=== PATIENT | male | born 1950 | race Caucasian/White ===

== ENCOUNTER 2025-06-02 11:50 | Inpatient (IN) | payer MEDICARE, MEDICAID ==
[~2025-06-02] VITALS: Ht 149.9 cm; Wt 67.6 kg
[2025-06-02] MEDS ORDERED: ATOR20TA65 PO (16:32)
[2025-06-02] MEDS ORDERED: ASPI-1450 PO (16:32)
[2025-06-02] MEDS ORDERED: CLOP75TA83 PO (17:27)
[2025-06-02] MEDS ORDERED: PIPE3.3772 IV (17:27)
[2025-06-02] MEDS ORDERED: EMPA25TA3 PO (17:27)
[2025-06-02 18:35] VITALS: BP 132/67; PULSE 64; RESP 18; TEMP 98.8; O2SAT 97
[2025-06-02 20:00] VITALS: BP 120/64; PULSE 64; RESP 18; TEMP 98.4; O2SAT 97
[2025-06-02] MEDS ORDERED: ETHYL ALCOHOL 62% ANTISEPTIC NASAL SANITIZER 0.6 ML AMPUL NASAL SCH (21:00)
[2025-06-02] MEDS: ATORVASTATIN CALCIUM 20 MG TABLET PO SCH (21:28)
[2025-06-02] MEDS: ETHYL ALCOHOL 62% ANTISEPTIC NASAL SANITIZER 0.6 ML AMPUL NASAL SCH (21:28)
[2025-06-02] MEDS: HEPARIN SODIUM,PORCINE 5,000 UNITS/ML VIAL SQ SCH (23:02)
[2025-06-02] MEDS: PIPERACILLIN/TAZO 3.375 GM/D5W 50 ML IV SCH (23:03)
[2025-06-03] MEDS ORDERED: DEXTROSE 50%-WATER 25 GM/50 ML SYRINGE IVP PRN (02:00)
[2025-06-03 06:45] LABS: GLUCOMETER DEV NAME(LOC) 2WR.1D; GLUCOSE,POINT OF CARE 138 MG/DL (70-110)
[2025-06-03 06:57] LABS: PLATELET COUNT (AUTO) 233 K/uL (150-450); RED BLOOD CELL COUNT(AUTO) 4.40 MIL/uL (4.50-5.90); RED CELL DISTRIBUTION WIDTH 13.1 % (11.5-14.5); WHITE BLOOD COUNT (AUTO) 9.2 K/uL (4.5-11.0)
[2025-06-03 07:11] LABS: ASPARTATE AMINOTRANSFERASE 25 U/L (15-37); CALCIUM, TOTAL 9.0 mg/dL (8.8-10.5); CREATININE 0.90 mg/dL (0.60-1.30); GLOMERULAR FILTR. RATE CALC > 60 mL/min (>60); GLUCOSE,RANDOM 150 mg/dL (70-110); SODIUM SERUM 143 mmol/L (136-145); TOTAL PROTEIN, SERUM 7.2 g/dL (6.4-8.2); UREA NITROGEN, BLOOD 16 mg/dL (7-18)
[2025-06-03 08:00] VITALS: BP 120/60; PULSE 59; RESP 18; TEMP 98.7; O2SAT 100
[2025-06-03] MEDS: ASPIRIN 81 MG CHEWABLE TABLET PO SCH (08:42)
[2025-06-03] MEDS: CLOPIDOGREL BISULFATE 75 MG TABLET PO SCH (08:42)
[2025-06-03] MEDS: EMPAGLIFLOZIN 25 MG TABLET PO SCH (08:43)
[2025-06-03] MEDS: 0.9% SODIUM CHLORIDE 10 ML SYRINGE IVP SCH (08:43)
[2025-06-03 12:51] LABS: GLUCOMETER DEV NAME(LOC) 2WR.1D; GLUCOSE,POINT OF CARE 177 MG/DL (70-110)
[2025-06-03] MEDS: INSULIN LISPRO 100 UNITS/ML SQ PRN (12:55)
[2025-06-03 14:46] LABS: APPEARANCE,URINE CLEAR (CLEAR); GLUCOSE, URINE (UA) >=1000 mg/dL (NEGATIVE); LEUKOCYTE ESTERASE ,URINE NEGATIVE (NEGATIVE); NITRATE,URINE NEGATIVE (NEGATIVE); OCCULT BLOOD,URINE NEGATIVE (NEGATIVE); SPECIFIC GRAVITIY, URINE 1.031 (1.003-1.030)
[2025-06-03 17:59] LABS: SQUAMOUS EPITHELIAL CELL,UR Rare /LPF (None Seen)
[2025-06-03 18:05] LABS: GLUCOMETER DEV NAME(LOC) 2WR.1D; GLUCOSE,POINT OF CARE 402 MG/DL (70-110)
[2025-06-03 18:41] LABS: GLUCOMETER DEV NAME(LOC) 2WR.2C; GLUCOSE,POINT OF CARE 169 MG/DL (70-110)
[2025-06-03 20:02] VITALS: BP 119/72; PULSE 68; RESP 18; TEMP 98.6; O2SAT 95
[2025-06-03] MEDS: AMOX TR/POT CLAV 500 MG/125 MG TABLET PO SCH (20:07)
[2025-06-03 20:36] LABS: GLUCOMETER DEV NAME(LOC) 2WR.1D; GLUCOSE,POINT OF CARE 227 MG/DL (70-110)
[2025-06-04 02:00] VITALS: O2SAT 95
[2025-06-04 07:00] LABS: GLUCOMETER DEV NAME(LOC) 2WR.1D; GLUCOSE,POINT OF CARE 123 MG/DL (70-110)
[2025-06-04 08:00] VITALS: BP 105/79; PULSE 65; RESP 18; TEMP 98.1; O2SAT 100
[2025-06-04 11:51] LABS: GLUCOMETER DEV NAME(LOC) 2WR.2C; GLUCOSE,POINT OF CARE 238 MG/DL (70-110)
[2025-06-04 16:45] LABS: GLUCOMETER DEV NAME(LOC) 2WR.2C; GLUCOSE,POINT OF CARE 111 MG/DL (70-110)
[2025-06-04 20:00] VITALS: BP 134/57; PULSE 62; RESP 19; TEMP 98.1; O2SAT 97
[2025-06-04 20:55] LABS: GLUCOMETER DEV NAME(LOC) 2WR.2C; GLUCOSE,POINT OF CARE 219 MG/DL (70-110)
[2025-06-04] MEDS: TAMSULOSIN HCL 0.4 MG CAPSULE PO SCH (21:14)
[2025-06-05 07:35] LABS: GLUCOMETER DEV NAME(LOC) 2WR.2C; GLUCOSE,POINT OF CARE 119 MG/DL (70-110)
[2025-06-05 08:00] VITALS: BP 111/57; PULSE 65; RESP 18; TEMP 97.7; O2SAT 100
[2025-06-05 11:51] LABS: GLUCOMETER DEV NAME(LOC) 2WR.1D; GLUCOSE,POINT OF CARE 208 MG/DL (70-110)
[2025-06-05 17:25] LABS: GLUCOMETER DEV NAME(LOC) 2WR.2C; GLUCOSE,POINT OF CARE 150 MG/DL (70-110)
[2025-06-05 20:04] VITALS: BP 121/53; PULSE 69; RESP 18; TEMP 98.2; O2SAT 98
[2025-06-05 20:55] LABS: GLUCOMETER DEV NAME(LOC) 2WR.1D; GLUCOSE,POINT OF CARE 168 MG/DL (70-110)
[2025-06-06 07:00] LABS: GLUCOMETER DEV NAME(LOC) 2WR.2C; GLUCOSE,POINT OF CARE 108 MG/DL (70-110)
[2025-06-06 08:11] VITALS: BP 120/58; PULSE 69; RESP 18; TEMP 97.9; O2SAT 98
[2025-06-06] MEDS: ACETAMINOPHEN 325 MG TABLET PO PRN (08:11)
[2025-06-06 12:46] LABS: GLUCOMETER DEV NAME(LOC) 2WR.2C; GLUCOSE,POINT OF CARE 156 MG/DL (70-110)
[2025-06-06 16:51] LABS: GLUCOMETER DEV NAME(LOC) 2WR.2C; GLUCOSE,POINT OF CARE 128 MG/DL (70-110)
[2025-06-06 20:02] VITALS: BP 122/56; PULSE 70; RESP 18; TEMP 98.4; O2SAT 96
[2025-06-06 22:00] LABS: GLUCOMETER DEV NAME(LOC) 2WR.2C; GLUCOSE,POINT OF CARE 131 MG/DL (70-110)
[2025-06-06 22:44] VITALS: O2SAT 96
[2025-06-07 07:21] LABS: GLUCOMETER DEV NAME(LOC) 2WR.1D; GLUCOSE,POINT OF CARE 101 MG/DL (70-110)
[2025-06-07 08:00] VITALS: BP 117/69; PULSE 70; RESP 18; TEMP 98.1; O2SAT 98
[2025-06-07 10:16] LABS: GLUCOMETER DEV NAME(LOC) 2WR.1D; GLUCOSE,POINT OF CARE 200 MG/DL (70-110)
[2025-06-07 12:00] LABS: GLUCOMETER DEV NAME(LOC) 2WR.1D; GLUCOSE,POINT OF CARE 122 MG/DL (70-110)
[2025-06-07 16:50] LABS: GLUCOMETER DEV NAME(LOC) 2WR.1D; GLUCOSE,POINT OF CARE 107 MG/DL (70-110)
[2025-06-07 19:30] VITALS: BP 129/61; PULSE 67; RESP 18; TEMP 98.4; O2SAT 98
[2025-06-07 23:26] LABS: GLUCOMETER DEV NAME(LOC) 2WR.1D; GLUCOSE,POINT OF CARE 123 MG/DL (70-110)
[2025-06-08 08:00] VITALS: BP 122/64; PULSE 75; RESP 18; TEMP 97.9; O2SAT 98
[2025-06-08 20:00] VITALS: BP 130/69; PULSE 69; RESP 18; TEMP 97.5; O2SAT 97
[2025-06-09 07:30] VITALS: BP 96/68; PULSE 77; RESP 19; TEMP 98.1; O2SAT 100
[2025-06-09 07:31] LABS: CALCIUM, TOTAL 8.8 mg/dL (8.8-10.5); CREATININE 0.68 mg/dL (0.60-1.30); GLOMERULAR FILTR. RATE CALC > 60 mL/min (>60); GLUCOSE,RANDOM 103 mg/dL (70-110); SODIUM SERUM 141 mmol/L (136-145); UREA NITROGEN, BLOOD 14 mg/dL (7-18)
[2025-06-09 16:26] VITALS: BP 112/57; PULSE 64
[2025-06-09 20:00] VITALS: BP 126/67; PULSE 63; RESP 17; TEMP 97.8; O2SAT 98
[2025-06-09] MEDS: DOCUSATE SODIUM 100 MG CAPSULE PO PRN (21:25)
[2025-06-10 00:16] LABS: GLUCOMETER DEV NAME(LOC) 2WR.2C; GLUCOSE,POINT OF CARE 168 MG/DL (70-110)
[2025-06-10 06:56] LABS: GLUCOMETER DEV NAME(LOC) 2WR.2C; GLUCOSE,POINT OF CARE 106 MG/DL (70-110)
[2025-06-10 08:00] VITALS: BP 96/52; PULSE 61; RESP 18; TEMP 97.6; O2SAT 97
[2025-06-10 20:02] VITALS: BP 138/71; PULSE 67; RESP 18; TEMP 98.6; O2SAT 100
[2025-06-11 08:10] VITALS: BP 101/57; PULSE 56; RESP 18; TEMP 97.6; O2SAT 100
[2025-06-11 20:01] VITALS: BP 108/49; PULSE 69; RESP 18; TEMP 98.6; O2SAT 97
[2025-06-12 07:50] LABS: GLUCOMETER DEV NAME(LOC) 2WR.2C; GLUCOSE,POINT OF CARE 123 MG/DL (70-110)
[2025-06-12 08:00] VITALS: BP 120/80; PULSE 63; RESP 18; TEMP 98; O2SAT 98
[2025-06-12 20:45] VITALS: BP 123/70; PULSE 64; RESP 18; TEMP 98.8; O2SAT 99
[2025-06-12] MEDS: MELATONIN 3 MG TABLET PO PRN (20:48)
[2025-06-13 06:56] LABS: GLUCOMETER DEV NAME(LOC) 2WR.1D; GLUCOSE,POINT OF CARE 113 MG/DL (70-110)
[2025-06-13 08:00] VITALS: BP 127/62; PULSE 56; RESP 18; TEMP 97.9; O2SAT 99
[2025-06-13 10:31] LABS: GLUCOMETER DEV NAME(LOC) 2WR.1D; GLUCOSE,POINT OF CARE 97 MG/DL (70-110)
[2025-06-13 10:46] LABS: GLUCOMETER DEV NAME(LOC) 2WR.1D; GLUCOSE,POINT OF CARE 113 MG/DL (70-110)
[2025-06-13] MEDS: HEPARIN SODIUM,PORCINE 5,000 UNITS/ML VIAL SQ SCH (10:51)
[2025-06-13] MEDS ORDERED: TAMS0.4C94 PO (14:01)
[2025-06-13] MEDS ORDERED: METF-1211 PO (14:01)
[2025-06-13] MEDS ORDERED: ATOR20TA65 PO (14:03)
[2025-06-13] MEDS ORDERED: ASPI-1450 PO (14:03)
[2025-06-13] MEDS ORDERED: CLOP75TA83 PO (14:03)
[2025-06-13] MEDS ORDERED: EMPA25TA3 PO (14:03)
[2025-06-13] MEDS: PNEUMOCOCCAL VACCINE POLYVALENT 0.5 ML SYRINGE [PPSV23] IM. ONE (16:42)
[2025-06-13 20:05] VITALS: BP 124/67; PULSE 68; RESP 18; TEMP 98; O2SAT 99
[2025-06-14 07:01] LABS: GLUCOMETER DEV NAME(LOC) 2WR.1D; GLUCOSE,POINT OF CARE 116 MG/DL (70-110)
[2025-06-14 08:00] VITALS: BP 127/61; PULSE 66; RESP 19; TEMP 98.1; O2SAT 97
[2025-06-14 11:15] LABS: GLUCOMETER DEV NAME(LOC) 2WR.1D; GLUCOSE,POINT OF CARE 117 MG/DL (70-110)
== END 2025-06-14 13:00 | disposition home health service (06) | DRG 56 ==
LOC: 2WR 18:37
PROVIDERS: ADMIT Physical Medicine & Rehabilitation; ATTEND Physical Medicine & Rehabilitation
DX: I69.354 Hemiplegia and hemiparesis following cerebral infarction affecting left non-dominant side (principal); J18.9 Pneumonia, unspecified organism; R47.1 Dysarthria and anarthria; R41.89 Other symptoms and signs involving cognitive functions and awareness; Z74.09 Other reduced mobility; I10 Essential (primary) hypertension; E11.9 Type 2 diabetes mellitus without complications; E78.5 Hyperlipidemia, unspecified; K08.89 Other specified disorders of teeth and supporting structures; R13.12 Dysphagia, oropharyngeal phase; Z91.148 Patient's other noncompliance with medication regimen for other reason
CPT/HCPCS: 74230; 80048; 80053; 81001; 82962; 85025; 87081; 92507; 92523; 92526; 92611; 97110; 97112; 97116; 97150; 97163; 97167; 97530; 97535; 99366; J1644; J2543

== ENCOUNTER 2025-07-19 10:49 | Emergency (ER) | payer MEDICARE, MEDICAID ==
[~2025-07-19] VITALS: Ht 144.8 cm; Wt 68.2 kg
[~2025-07-19 10:49] MED LIST: ASPI-1450 PO; ATOR20TA65 PO; CLOP75TA83 PO; EMPA25TA3 PO; METF-1211 PO; TAMS0.4C94 PO
[2025-07-19 11:02] VITALS: TEMP 98.2
[2025-07-19] MEDS ORDERED: EMPA25TA3 PO (11:09)
[2025-07-19] MEDS ORDERED: ATOR40TA28 PO (11:09)
[2025-07-19] MEDS ORDERED: LISI-892 PO (11:09)
[2025-07-19 11:25] LABS: GLUCOMETER DEV NAME(LOC) ER.7; GLUCOSE,POINT OF CARE 154 MG/DL (70-110)
[2025-07-19] MEDS ORDERED: DOXY-354 PO (14:09)
[2025-07-19] MEDS ORDERED: CEPH-558 PO (14:09)
[2025-07-19 14:19] VITALS: BP 116/70; PULSE 75; RESP 18; O2SAT 99
== END 2025-07-19 14:28 | disposition home or self-care (01) ==
LOC: EMS 10:55
DX: N48.22 Cellulitis of corpus cavernosum and penis (principal); E11.9 Type 2 diabetes mellitus without complications; E78.00 Pure hypercholesterolemia, unspecified; Z86.73 Personal history of transient ischemic attack (TIA), and cerebral infarction without residual deficits; Z79.82 Long term (current) use of aspirin; Z79.02 Long term (current) use of antithrombotics/antiplatelets; Z79.899 Other long term (current) drug therapy
CPT/HCPCS: 82962; 99283